=== PATIENT | female | born 1985 | race Two or more races ===

== ENCOUNTER 2016-09-20 18:10 | Emergency (ER) | payer MEDICAID ==
[~2016-09-20] VITALS: Ht 170.2 cm; Wt 85.3 kg
[2016-09-20 20:58] LABS: Urine Bilirubin Negative (Negative); Urine Blood Negative /uL (Negative); Urine Color Yellow (Yellow); Urine Glucose Normal (Normal); Urine Ketone Negative (Negative); Urine Nitrite Negative (Negative); Urine RBC <1 /hpf (0 - 4); Urine Squamous Epithelial Cell FEW /hpf (<5); Urine Urobilinogen Normal (Negative)
[2016-09-20] MEDS ORDERED: predniSONE 20 MG TAB PO ONE (21:30)
[2016-09-20 22:28] VITALS: BP 102/54
== END 2016-09-20 22:29 | disposition home or self-care (01) ==
LOC: ER 18:10
CPT/HCPCS: 70450 ×2; 81001 ×2; 99285; J7512

== ENCOUNTER 2018-12-22 11:57 | Emergency (ER) | payer MEDICAID ==
[~2018-12-22] VITALS: Ht 170.2 cm; Wt 86.2 kg
[2018-12-22 15:30] VITALS: BP 103/51
== END 2018-12-22 15:42 | disposition home or self-care (01) ==
LOC: ER 11:57
DX: T24.031A Burn of unspecified degree of right lower leg, initial encounter (principal); Z98.51 Tubal ligation status; X12.XXXA Contact with other hot fluids, initial encounter; Y93.89 Activity, other specified; Y92.89 Other specified places as the place of occurrence of the external cause; Y99.8 Other external cause status

== ENCOUNTER 2021-09-01 15:09 | Emergency (ER) | payer BC, MEDICAID ==
[~2021-09-01] VITALS: Ht 170.2 cm; Wt 95.3 kg
[2021-09-01 15:11] VITALS: BP 104/60
[2021-09-01] MEDS ORDERED: IBUP800T27 PO (16:39)
[2021-09-01] MEDS ORDERED: CLIN300C8 PO (16:39)
== END 2021-09-01 17:02 | disposition home or self-care (01) ==
LOC: ER 15:17
DX: K04.7 Periapical abscess without sinus (principal); F41.1 Generalized anxiety disorder; Z98.51 Tubal ligation status; Z98.890 Other specified postprocedural states
CPT/HCPCS: 71046

== ENCOUNTER 2024-06-13 13:51 | Emergency (ER) | payer SELFPAY ==
[~2024-06-13] VITALS: Ht 170.2 cm; Wt 98.3 kg
[~2024-06-13 13:51] MED LIST: CLIN1CAP70 PO; IBUP-1456 PO
--- NOTE | 2024-06-13 14:07 | ECG ---
[facility] Test Date: 2024-06-13 Test Time: 14:01:16 Pat Name: REJI BARTHOLOMEW Department: ER Room: Gender: F Base Filler Operator: EVANGELISTA : 1985 Requested By: LANDON MALCOLM Order Number: [id number] Reading MD: Graham Sandoval Measurements Intervals [place] Rate: 81 P: 52 WA: 137 QRS: 54 QRSD: 85 T: 31 QT: 379 QTc: 440 Interpretive Statements Sinus rhythm Probable left atrial enlargement Low voltage, precordial leads Borderline T abnormalities, anterior leads Electronically Signed On 06-14-2024 16:08:16 PST by Graham Sandoval Please click the below link to view image of tracing.
--- NOTE | 2024-06-13 14:10 | ED.PDOC ---
History of Present Illness HPI Comments This otherwise healthy 39-year-old female presents secondary 1 day history of right-sided chest discomfort palpitations shortness of breath. She states she had had some represents the past he was secondary to anxiety. She had a stressful day at work yesterday. She has no cardiac risk factors such as hypertension, diabetes. Denies smoking, alcohol or drug use. She has no palliative or provocative factors. Denies modifying factors. Denies radiation of her symptoms. Fourteen systems reviewed and negative except as mentioned above Chief Complaint: SOB, palpitations, ?anxiety? 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 History Family History Family History: Reviewed,noncontributory to illness Social History Smoker: Non-Smoker Constitutional: denies: chills, diaphoresis, fatigue, fever, malaise, sweats, weakness EENTM: denies: blurred vision, double vision, ear bleeding, ear discharge, ear drainage, ear pain, ear ringing, eye pain, eye redness, hearing loss, mouth pain, mouth swelling, nasal discharge, nose bleeding, nose congestion, nose pain, photophobia, tearing, throat pain, throat swelling, voice changes, others Respiratory: reports: shortness of breath; denies: cough Cardiovascular: reports: chest pain, palpitations; denies: dizzy spells, irregular heart beat, left arm pain Gastrointestinal: denies: abdomen distended, abdominal pain, constipated, diarrhea, nausea, vomiting Neurological: denies: dizziness, fainting, headache, paresthesia, pre-existing deficit, seizure, speech problems, tingling Musculoskeletal: denies: back pain Integumetry: denies: change in color Allergic/Immunocompromised: denies: Difficulty Healing Hematologic/Lymphatic: denies: anemia Psychiatric: reports: anxiety; denies: bipolar disorder, depression, hopeless, panic disorder, schizophrenia, suicidal Physical Exam General Appearance: Normal, Other (tearful) HEENT: Head, Normal ENT Inspection Neck: Normal, Supple Respiratory: Lungs Clear, No Respiratory Distress, Normal Breath Sounds Cardiovascular: No Edema, No Murmur, No Gallop, Normal Peripheral Pulses, Regular Rate/Rhythm Breast Exam: Deferred Gastrointestinal: No Organomegaly, Non Tender, No Pulsatile Mass, Normal Bowel Sounds, Soft Genitalia: Deferred Pelvic: Deferred Rectal: Deferred Extremities: Normal range of motion, Non-tender Neurologic: brattice builder II-XII nml as Tested, No Motor Deficits Cerebellar Function: NOT DONE Reflexes: NOT DONE Skin: Dry, Normal Color, Warm Lymphatic: NOT DONE Was a procedure done? Was a procedure done?: No Differential Dx Considerations may include: STEMI, NSTEMI, anxiety, palpitations X-Ray, Labs, Meds, VS Vital Signs Date Time Temp Pulse Resp B/P (MAP) Pulse Ox O2 Delivery O2 Flow Rate FiO2 06/13/24 14:25 98.0 86 18 107/59 (75) 98 98.0 06/13/24 14:25 86 18 98 Room Air 06/13/24 14:24 18 98 Room Air* 0 21 06/13/24 14:15 97.5 99 18 126/64 (84) 98 06/13/24 14:01 81 Lab Test 06/13/24 15:11 06/13/24 14:19 Range/Units Troponin I High Sensitivity Pending < 3 L </=34 ng/L White Blood Count 9.9 4.4-10.8 10^3/uL Red Blood Count 5.46 H 4.0-5.20 10^6/uL Hemoglobin 15.1 12.2-16.2 g/dL Hematocrit 45.0 36.0-46.0 % Mean Corpuscular Volume 82.5 80.0-100.0 fL Mean Corpuscular Hemoglobin 27.6 L 28.0-32.0 pg Mean Corpuscular Hemoglobin Concent 33.4 32.0-36.0 g/dL Red Cell Distribution Width 14.6 H 11.8-14.3 % Platelet Count 451 H 140-450 10^3/uL Mean Platelet Volume 7.0 6.9-10.8 fL Neutrophils (%) (Auto) 81.2 H 37.0-80.0 % Lymphocytes (%) (Auto) 12.2 10.0-50.0 % Monocytes (%) (Auto) 5.8 0.0-12.0 % Eosinophils (%) (Auto) 0.4 0.0-7.0 % Basophils (%) (Auto) 0.4 0.0-2.0 % Neutrophils # (Auto) 8.0 1.6-8.6 10 ^3/uL Lymphocytes # (Auto) 1.2 0.4-5.4 10 ^3/uL Monocytes # (Auto) 0.6 0-1.3 10 ^3/uL Eosinophils # (Auto) 0 0-0.8 10 ^3/uL Basophils # (Auto) 0 0-0.2 10 ^3/uL Nucleated Red Blood Cells 0.0 % Sodium Level 138 136-145 mmol/L Potassium Level 4.6 3.5-5.1 mmol/L Chloride Level 106 98-107 mmol/L Carbon Dioxide Level 25 20-31 mmol/L Anion Gap 7 5-15 Blood Urea Nitrogen 9 9-23 mg/dL Creatinine 0.80 0.550-1.02 mg/dL Glomerular Filtration Rate Calc 97 >90 mL/min BUN/Creatinine Ratio 11.3 10.0-20.0 Serum Glucose 92 74-106 mg/dL Calcium Level 9.8 8.7-10.4 mg/dL Total Bilirubin 0.5 0.2-1.0 mg/dL Aspartate Amino Transferase (AST) 19 13-40 U/L Alanine Aminotransferase (ALT) 13 7-40 U/L Alkaline Phosphatase 80 46-116 U/L Total Protein 5.9 5.7-8.2 g/dL Albumin 4.2 3.2-4.8 g/dL Current Medications Medications (Trade) Dose Ordered Sig/Ernesto Route Start Time Stop Time Status Last Admin Lorazepam (Ativan Tablet) 0.5 mg ONCE ONCE PO 06/13/24 14:15 06/13/24 14:16 DC 06/13/24 14:24 X-Ray, Labs, Meds, VS Comment This 39-year-old female presents secondary right-sided chest pain after being involved in structured situation. She was no cardiac risk factors. EKG was was benign. She had normal labs including normal troponin. Based on her history, physical exam and labs, I do not believe she has a cardiac cause of her symptoms. The patient endorses a history of anxiety and having a panic attack in the past that presents a similarly. I believe this is the case. She was given 0.5 mg of Ativan p.o. x1. Upon reassessment, patient's her pain has completely resolved. As such, I believe she has anxiety. I will discharge the patient home with prescription for Vistaril. She was asked to investigate relaxation techniques. Time of 1ST Reevaluation: 15:30 Reevaluation 1ST: Resolved Patient Education/Counseling: Diagnosis, Treatment Family Education/Counseling: No Family Present Departure 1 Departure Time of Disposition: 15:31 Impression: Primary Impression: Anxiety reaction Additional Impression: Palpitations Disposition: 01 HOME / SELF CARE / HOMELESS Condition: Good Discharged With: Self Critical Care Note Critical Care Time?: No Stability Stability form required: No Heart Score Heart Score: Heart Score Response (Comments) Value History Slightly Suspicious 0 EKG Normal 0 Age <45 0 Risk Factors N/A 0 Troponin N/A 0 Total 0 LANDON MALCOLM MD Jun 13, 2024 14:10
[2024-06-13] MEDS: LORazepam 0.5 MG TAB PO ONE (14:24)
[2024-06-13 14:34] LABS: Basophils # (auto) 0 10 ^3/uL (0-0.2); Basophils % (auto) 0.4 % (0.0-2.0); Eosinophils # (auto) 0 10 ^3/uL (0-0.8); Eosinophils % (auto) 0.4 % (0.0-7.0); Hemoglobin 15.1 g/dL (12.2-16.2); Lymphocytes # (auto) 1.2 10 ^3/uL (0.4-5.4); Lymphocytes % (auto) 12.2 % (10.0-50.0); Mean Corpuscular Hemoglobin 27.6 pg (28.0-32.0); Mean Corpuscular Hgb Conc. 33.4 g/dL (32.0-36.0); Mean Corpuscular Volume 82.5 fL (80.0-100.0); Monocytes # (auto) 0.6 10 ^3/uL (0-1.3); Monocytes % (auto) 5.8 % (0.0-12.0); Neutrophils % (auto) 81.2 % (37.0-80.0); Platelet Count (auto) 451 10^3/uL (140-450); Red Blood Cells 5.46 10^6/uL (4.0-5.20); Red Cell Distribution Width 14.6 % (11.8-14.3); White Blood Cell 9.9 10^3/uL (4.4-10.8)
[2024-06-13 15:01] LABS: Alanine Aminotransferase 13 U/L (7-40); Albumin 4.2 g/dL (3.2-4.8); Alkaline Phosphatase 80 U/L (46-116); Anion Gap 7 (5-15); Aspartate Aminotransferase 19 U/L (13-40); BUN/Creatinine Ratio 11.3 (10.0-20.0); Bilirubin, Total 0.5 mg/dL (0.2-1.0); Calcium 9.8 mg/dL (8.7-10.4); Carbon Dioxide 25 mmol/L (20-31); Chloride 106 mmol/L (98-107); Glucose 92 mg/dL (74-106); Potassium 4.6 mmol/L (3.5-5.1); Sodium 138 mmol/L (136-145); Total Protein 5.9 g/dL (5.7-8.2)
[2024-06-13 15:02] LABS: Blood Urea Nitrogen 9 mg/dL (9-23)
[2024-06-13] MEDS ORDERED: HYDR25CA PO (15:35)
[2024-06-13 15:44] VITALS: BP 100/64; PULSE 77; RESP 16; TEMP 98.3; O2SAT 99
== END 2024-06-13 15:44 | disposition home or self-care (01) ==
LOC: ER 13:51
DX: F41.1 Generalized anxiety disorder (principal); R00.2 Palpitations
CPT/HCPCS: 36415; 80053; 84484; 85025; 93005